=== PATIENT | female | born 1970 | race Caucasian/White ===

== ENCOUNTER → 2016-07-27 | Day surgery (SDC) | payer OTHER ==
[~2016-07-27] MED LIST: CEFAZOLIN 1 GM VIAL ONE; DEXAMETHASONE 4 MG/ML VIAL IV ONE; FENTANYL 100 MCG/2 ML VIAL IV ONE; FENTANYL 100 MCG/2 ML VIAL IV PRN; FERRIC SUBSULFATE TOP ONE; KETOROLAC TROMETH 30 MG/ML VIAL IM ONE; LABETALOL 20 MG/4 ML SYRINGE IV PRN; LIDOCAINE 100 MG PFS IV ONE; MEPERIDINE 25 MG/ML TUBEX IV PRN; METOCLOPRAMIDE 10 MG/2 ML VIAL IV ONE; MIDAZOLAM 2 MG/2 ML VIAL IV ONE; ONDANSETRON HCL 4 MG ODT TAB PO PRN; ONDANSETRON HCL 4 MG/2 ML VIAL IV ONE; ONDANSETRON HCL 4 MG/2 ML VIAL IV PRN; PROPOFOL 200 MG/20 ML VIAL IV ONE; Remove Transdermal Scopolamine Patch after 24 hours ONE; SCOPOLAMINE TRANSDERMAL PATCH TOP ONE; SCOPOLAMINE TRANSDERMAL PATCH TOP PRN; hydrALAZINE 20 MG/ML VIAL IV PRN
--- NOTE | 2016-07-27 10:11 | HIM.ANES ---
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, TR) No: Hx Cardiac Disorders HEENT: No: Loose/Decaying Teeth, Other HEENT Problems Hx Other HEENT Surgery: TONSILECTOMY Gastrointestinal: No: Hx Gastroesophageal Reflux Disease, Hx Gastrointestinal Disorders Neurological/Musculoskeletal: No: Hx Neurological Disorders Psychological: No Hx Mental/Emotional Disorders Blood/Autoimmune: No: Hx AIDS, Hx Hepatitis (type) Smoking Status: Never smoker Hx Echocardiogram (date): Yes (2003 MILD MR, TR, EF 55-75%) Surgical History: Yes: Knee (RT KNEE ARTHROSCOPIC SX) Other Surgical History: TONSILECTOMY C SECTION 2004, D&C 2010, COLD BX 2008 Tonsilectomy, rt knee, c section, cone biopsy, D/C - Focused Physical Exam NPO since: 1829 Mallampati: Class I Thyromental Distance: Greater than 3 Neck: Full Range of Motion Cardiovascular/Chest: Normal Respiratory: Lungs clear Any problems with anesthesia, including nausea and vomiting?: Yes (nausea) Any relatives with a history of Malignant Hyperthermia?: No Does patient have a history of Malignant Hyperthermia?: No Beta Geni given (if appropriate): N/A Does the patient have a history of Motion Sickness-: Yes Other: PT/PTT/INR/ Urine Test Neg (NEGATIVE) 07/27/16 08:30 Allergies Allergy/AdvReac Type Severity Reaction Status Date / Time codeine [Codeine] Allergy Unknown NAUSEA,VOMI Verified 07/27/16 09:19 TING Home Medications Medication Instructions Recorded Last Taken Type Multivitamin [One Daily] 1 each PO DAILY 07/26/16 07/26/16 08:00 History Height and Weight Patient's height 5 ft 4 in Patient's weight 68.039 kg Vital Signs Temperature 98.2 F 07/27/16 08:40 Pulse Rate 99 07/27/16 08:40 Respiratory Rate 18 07/27/16 08:40 Blood Pressure 151/89 07/27/16 08:40 Pulse Oxygen Saturation 100 07/27/16 08:40 METS - Level of Activity: Climbing stairs(1 flight),walking level ground, running short distance - Anesthetic Plan Anesthesia Type: General ASA Class: 2 -: I have examined this patient and reviewed the medical record. The patient has been assessed prior to anesthesia. Risks and benefits of anesthesia and anesthetic technique options have been discussed and all questions answered. The patient accepts the risk and desires me to proceed with the planned anesthetic.
--- NOTE | 2016-07-27 11:34 | HIMOPRPT ---
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 PROCEDURE: Cervical conization with endocervical and uterine curettage. SURGEON: Eduin Rodríguez MD. ANESTHESIA: General endotracheal tube. COMPLICATIONS: None. ESTIMATED BLOOD LOSS: 5 cubic centimeters. FINDINGS: Grossly normal-appearing cervix on exam under anesthesia. PROCEDURE IN DETAIL: The patient was taken to the operating room and after successful induction of general endotracheal tube anesthesia, was positioned in [facility]. The perineum and vagina were prepped and draped as a sterile field and the bladder was drained. A weighted speculum and anterior Xochilt were placed and the cervix was secured with a long Allis clamp. Stay sutures were placed at 3 and 9 o'clock using 0 chromic suture. The cervical cone was resected using a needlepoint Bovie on cut mode. The endocervical curettings were then obtained using a cervical curette. A small currette was passed and endometrial currettings were obtained for pathology. All specimens were passed off the field, and the cone bed was rendered hemostatic with Bovie cautery. Once hemostasis was complete, the cone bed was treated with Monsel's solution and again noted to be completely hemostatic. The stay sutures were cut and all instruments were removed from the vagina. [facility] and woken up from general anesthesia, and brought to recovery room in stable condition. Sponge and instrument counts were correct x3. All specimens were sent to pathology.
--- NOTE | 2016-07-27 11:37 | PCM.DCS92 ---
- Primary/Secondary Discharge Diagnoses (1) Atypical glandular cells of undetermined significance (RON) on cervical Pap smear Acute R87.619 - UNSP ABNORMAL CYTOLOG FINDINGS IN SPECMN FROM CERVIX UTERI Present on Admission: Yes - HOSPITAL COURSE /Op Complications: None - DISCHARGE INSTRUCTIONS Discharge Disposition: Home Discharge Condition: Good Cognitive Discharge Status: Unimpaired Fuctional Discharge Status: Independent Patient Leaving with Prescriptions?: Yes Prescriptions: Hydrocodone Bit/Acetaminophen [Lortab 5/325] 1 - 2 tab PO Q4H PRN #30 tab PRN Reason: Pain Ibuprofen Tablet [Motrin] 800 mg PO Q6-8H PRN #30 tab PRN Reason: Pain - Diet Diet at Discharge: Regular - Activity Activity: No Heavy Lifting, Pelvic Rest, No Driving No Driving for: While using pain medications - Instructions Call Physician for: Severe Abdominal Cramps, Foul Smelling Discharge, Soaking Pad in 1 hr, Temperature Above 100.4 - Incision Incision, Lacerations, or Tears: No - DC Summary Notes Discharge Medications: *See "Discharge Medication List" for a complete list of Home Medications and Discharge Medications.*
[2016-07-27 12:01] VITALS: TEMP 97.8
[2016-07-27 13:04] VITALS: PULSE 76
[2016-07-27 13:19] VITALS: BP 121/67
--- NOTE | 2016-07-27 13:19 | SC.ANESPOS ---
Post-Anesthesia Note LOC: Fully Awake Post-Anesthesia Assessment: Awake, Returned to Baseline, Hemodynamically Stable , Pain Control Adequate Phase I & II Recovery Complete: Yes Apparent Anesthesia Complication: No : N PACU Discharge Time: 12:03 - Vital Signs Blood Pressure: 121/67 Pulse: 76 Resp Rate: 16 O2 Sat: 100 Temp: 97.8 F - Comments Anesthesia Discharge Time Report Time 12:03
== END ==
LOC: SDC 08:14
PROVIDERS: ATTEND Obstetrics & Gynecology
PROC: 0UBC7ZZ Excision of Cervix, Via Natural or Artificial Opening (ICD-10-PCS; principal; 2016-07-27 08:55)
DX: R87.619 Unspecified abnormal cytological findings in specimens from cervix uteri (principal); Z85.41 Personal history of malignant neoplasm of cervix uteri
CPT/HCPCS: 57520; 81025; J0690; J1100; J1885; J2001; J2250; J2405; J2765; J3010; J3490